=== PATIENT | female | born 1980 | race Native Hawaiian/Other Pacific Islander ===

== ENCOUNTER 2018-06-06 14:46 | Emergency (ER) | payer OTHER ==
[~2018-06-06] VITALS: Ht 167.6 cm; Wt 70.3 kg
[2018-06-06 16:49] LABS: PLATELET COUNT 223 K/uL (152-353)
[2018-06-06 16:52] LABS: POTASSIUM 3.8 mmol/L (3.6-5.2)
[2018-06-06 19:05] VITALS: BP 116/69; TEMP 97.8
== END 2018-06-06 19:05 | disposition home or self-care (01) ==
LOC: ED 14:46
PROVIDERS: Family Medicine
DX: J30.9 Allergic rhinitis, unspecified (principal); R42 Dizziness and giddiness; M94.0 Chondrocostal junction syndrome [Tietze]
CPT/HCPCS: 36415; 80053; 81000; 81025; 84484; 85027; 93005; 99283

== ENCOUNTER 2021-04-07 14:17 | Emergency (ER) | payer OTHER ==
[~2021-04-07] VITALS: Ht 167.6 cm; Wt 70.3 kg
[2021-04-07 15:15] VITALS: BP 135/89; TEMP 98.3
== END 2021-04-07 15:15 | disposition home or self-care (01) ==
LOC: ED 14:17
DX: J20.9 Acute bronchitis, unspecified (principal)
CPT/HCPCS: 99281

== ENCOUNTER 2021-04-13 16:45 | Outpatient (CLI) | payer OTHER | END 2021-04-13 21:48 | disposition home or self-care (01) | LOC: RAD 16:45 | PROVIDERS: ATTEND Registered Nurse | DX: R10.32 Left lower quadrant pain (principal) | CPT/HCPCS: Q9963 ==

== ENCOUNTER 2021-06-14 12:07 | Outpatient (CLI) | payer OTHER ==
[2021-06-14 12:37] LABS: PLATELET COUNT 249 K/uL (152-353)
== END 2021-06-14 19:05 | disposition home or self-care (01) ==
LOC: LABW 12:07
PROVIDERS: ATTEND Internal Medicine
DX: R10.9 Unspecified abdominal pain (principal); R53.83 Other fatigue
CPT/HCPCS: 36415; 80053; 81000; 82150; 82306; 82550; 82570; 82607; 82728; 82746; 83036; 83540; 83550; 83690; 83735; 84100; 84155; 84439; 84443; 85027

== ENCOUNTER 2021-07-14 09:35 | Outpatient (CLI) | payer OTHER | END 2021-07-14 19:24 | disposition home or self-care (01) | LOC: US 09:35 | PROVIDERS: ATTEND Internal Medicine | DX: R93.5 Abnormal findings on diagnostic imaging of other abdominal regions, including retroperitoneum (principal) ==

== ENCOUNTER 2021-11-21 16:36 | Outpatient (CLI) | payer OTHER | END 2021-11-21 18:56 | disposition home or self-care (01) | LOC: RAD 16:36 | PROVIDERS: ATTEND Registered Nurse | DX: R06.02 Shortness of breath (principal) ==

== ENCOUNTER 2022-07-19 10:03 | Outpatient (CLI) | payer OTHER | END 2022-07-19 21:18 | disposition home or self-care (01) | LOC: MAMMO 10:03 | PROVIDERS: ATTEND Registered Nurse | DX: Z12.31 Encounter for screening mammogram for malignant neoplasm of breast (principal) ==

== ENCOUNTER 2022-08-04 09:03 | Emergency (ER) | payer OTHER ==
[~2022-08-04] VITALS: Ht 167.6 cm; Wt 67.1 kg
[2022-08-04 09:38] VITALS: BP 131/82; TEMP 97.1
[2022-08-04 10:19] LABS: PLATELET COUNT 161 K/uL (152-353)
[2022-08-04 10:34] LABS: POTASSIUM 3.7 mmol/L (3.6-5.2)
[2022-08-04 10:50] LABS: PARTIAL THROMBOPLASTIN TIME 28.1 SECONDS (24.5-33.6)
== END 2022-08-04 11:45 | disposition home or self-care (01) ==
LOC: ED 09:03
PROVIDERS: Family Medicine
DX: J10.1 Influenza due to other identified influenza virus with other respiratory manifestations (principal); F41.0 Panic disorder [episodic paroxysmal anxiety]
CPT/HCPCS: 80053; 80307; 81002; 82150; 82550; 83690; 84484; 85027; 85379; 85610; 85730; 87502; 93005; 94664; 99283

== ENCOUNTER 2022-08-21 09:05 | Outpatient (CLI) | payer OTHER | END 2022-08-21 20:26 | disposition home or self-care (01) | LOC: US 09:05 | PROVIDERS: ATTEND Nurse Practitioner Family | DX: R92.8 Other abnormal and inconclusive findings on diagnostic imaging of breast (principal); N63.21 Unspecified lump in the left breast, upper outer quadrant ==

== ENCOUNTER 2023-01-25 10:40 | Outpatient (CLI) | payer OTHER | END 2023-01-25 17:00 | disposition home or self-care (01) | LOC: MAMMO 10:40 | PROVIDERS: ATTEND Nurse Practitioner Family | DX: R92.8 Other abnormal and inconclusive findings on diagnostic imaging of breast (principal); N63.21 Unspecified lump in the left breast, upper outer quadrant | CPT/HCPCS: G0279 ==